=== PATIENT | male | born 1945 | race Caucasian/White ===

== ENCOUNTER 2016-09-19 09:45 | Outpatient (CLI) | payer MEDICARE, OTHER | END 2016-09-19 09:46 | disposition home or self-care (01) | DX: I10 Essential (primary) hypertension (principal); E78.9 Disorder of lipoprotein metabolism, unspecified; N40.1 Benign prostatic hyperplasia with lower urinary tract symptoms; K21.9 Gastro-esophageal reflux disease without esophagitis ==

== ENCOUNTER 2016-10-12 | Outpatient (CLI) | payer MEDICARE, OTHER | END 2016-10-12 11:32 | disposition critical access hospital (66) | CPT/HCPCS: A0425; A0429 ==

== ENCOUNTER 2016-10-12 11:51 | Emergency (ER) | payer MEDICARE, OTHER ==
[2016-10-12] MEDS ORDERED: SODIUM CHLORIDE 0.9% 500 ML IV ONE (13:39)
[2016-10-12] MEDS ORDERED: IOPAMIDOL-300 100 ML VIAL IVP ONE (14:30)
== END 2016-10-12 16:07 | disposition left against medical advice (07) ==
DX: R55 Syncope and collapse (principal); Z53.21 Procedure and treatment not carried out due to patient leaving prior to being seen by health care provider; I10 Essential (primary) hypertension; M10.9 Gout, unspecified; K21.9 Gastro-esophageal reflux disease without esophagitis; E78.5 Hyperlipidemia, unspecified; E78.00 Pure hypercholesterolemia, unspecified; N40.0 Benign prostatic hyperplasia without lower urinary tract symptoms; M19.90 Unspecified osteoarthritis, unspecified site
CPT/HCPCS: 36415; 70450; 71020; 71275; 80053; 81003; 83690; 83880; 84443; 84484; 85025; 85610; 85730; 93005; 93010; 99283; 99285; Q9967

== ENCOUNTER 2017-11-10 10:33 | Outpatient (CLI) | payer MEDICARE, OTHER | END 2017-11-10 10:34 | disposition EMS.NT | LOC: EMS 10:33 | PROVIDERS: ATTEND Surgery | DX: R55 Syncope and collapse (principal) ==

== ENCOUNTER 2018-06-18 14:40 | Outpatient (CLI) | payer MEDICARE, OTHER ==
--- NOTE | 2018-06-18 15:54 | Ultrasound Report ---
Reason: L Scrotal Pain Procedure Date: 06/18/2018 Accession Number: [id number] / [id number] Procedure: US - Testicle CPT Code: FULL RESULT: EXAM: SCROTAL ULTRASOUND EXAM DATE: 06/18/2018 03:10 PM. CLINICAL HISTORY: Left scrotal pain. COMPARISON: None. TECHNIQUE: Real-time scanning was performed with static images obtained. Color-flow images were utilized. FINDINGS: Right: Testis: 3.2 x 2.5 x 3.8 cm. Normal size and echotexture. No mass, calcification, or abnormal blood flow. Epididymis: 0.8 x 1.3 x 1.6 cm. Normal size and echotexture. No mass or abnormal blood flow. Hydrocele: Small hydrocele. Varicocele: Dilated varicose vein up to 3.3 mm without Valsalva maneuver which does not fully fill with color Doppler, possibly thrombosed. Left: Testis: 2.9 x 2.4 x 3.6 cm. Normal size and echotexture. No mass, calcification, or abnormal blood flow. Epididymis: 0.8 x 1.3 x 0.9 cm. Normal size and echotexture. No mass or abnormal blood flow. Hydrocele: Small hydrocele. Varicocele: Venous dilation of up to 3.7 mm which does not completely fill by color Doppler, possibly thrombosed. IMPRESSION: Bilateral varicoceles. Small bilateral hydroceles. No evidence of torsion, abscess, or asymmetric hyperemia. RADIA
== END 2018-06-18 14:41 | disposition home or self-care (01) ==
LOC: DI 14:40
PROVIDERS: ATTEND Urology
DX: I86.1 Scrotal varices (principal); N43.3 Hydrocele, unspecified
CPT/HCPCS: 76870

== ENCOUNTER 2018-08-26 10:03 | Outpatient (CLI) | payer MEDICARE, OTHER ==
[2018-08-26 10:16] LABS: BASOPHILS # (AUTO) 0.1 10^3/uL (0.0-0.1); BASOPHILS % (AUTO) 1.4 %; EOSINOPHILS # (AUTO) 0.3 10^3/uL (0.0-0.7); EOSINOPHILS % (AUTO) 4.3 %; HGB - HEMOGLOBIN 15.2 g/dL (14.0-18.0); LYMPHOCYTES # (AUTO) 2.1 10^3/uL (1.5-3.5); LYMPHOCYTES % (AUTO) 32.7 %; MEAN CORPUSCULAR HEMOGLOBIN 32.9 pg (27.0-31.0); MEAN CORPUSCULAR HGB CONC 34.6 g/dL (32.0-36.0); MEAN CORPUSCULAR VOLUME 94.9 fL (80.0-94.0); MEAN PLATELET VOLUME 6.6 fL (7.4-11.4); MONOCYTES # (AUTO) 0.6 10^3/uL (0.0-1.0); MONOCYTES % (AUTO) 9.3 %; NEUTROPHILS # (AUTO) 3.3 10^3/uL (1.5-6.6); NEUTROPHILS % (AUTO) 52.3 %; PLT - PLATELET COUNT 225 10^3/uL (130-450); RED BLOOD COUNT 4.63 10^6/uL (4.70-6.10); RED CELL DISTRIBUTION WIDTH 14.3 % (12.0-15.0); WHITE BLOOD COUNT 6.4 x10^3/uL (4.8-10.8)
[2018-08-26 10:25] LABS: CALCIUM 9.2 mg/dL (8.5-10.3); CREATININE 0.9 mg/dL (0.6-1.2)
== END 2018-08-26 10:04 | disposition home or self-care (01) ==
LOC: LAB 10:03
PROVIDERS: ATTEND Orthopaedic Surgery Sports Medicine
DX: Z01.818 Encounter for other preprocedural examination (principal); I10 Essential (primary) hypertension; G56.91 Unspecified mononeuropathy of right upper limb; G56.21 Lesion of ulnar nerve, right upper limb
CPT/HCPCS: 36415; 80048; 85025; 93005

== ENCOUNTER 2018-08-28 07:32 | Day surgery (SDC) | payer MEDICARE, OTHER ==
[~2018-08-28 07:32] MED LIST: ceFAZolin 2 GM/50 ML 2 GM/50 ML BAG IV ONE
[2018-08-28] MEDS ORDERED: LACTATED RINGERS 1,000 ML IV ONE (07:36)
--- NOTE | 2018-08-28 08:23 | ANESTHESIA ---
Pre-Anesthesia VS, & Labs - Diagnosis Right ulnar nerve compression - Procedure right ulnar nerve/cubital tunnel release, possible ulnar nerve transposition Vital Signs: Temp Pulse Resp BP Pulse Ox 36.0 C L 65 16 155/84 H 98 08/28/18 07:42 08/28/18 07:42 08/28/18 07:42 08/28/18 07:42 08/28/18 07:42 Height 5 ft 11 in Weight (kg) 79.3 kg Body Mass Index 25.1 - NPO >8 hours Home Medications and Allergies Allopurinol 200 mg PO BID 04/22/13 Lisinopril 20 mg PO DAILY 04/22/13 Metoprolol Tartrate [Lopressor] 25 mg PO BID 04/22/13 Naproxen 500 mg PO BID PRN 04/22/13 Omeprazole [PriLOSEC] 20 mg PO DAILY 04/22/13 rOPINIRole [Requip] 2 mg PO QPM 04/22/13 hydroCHLOROthiazide [Hydrochlorothiazide] 25 mg PO DAILY 10/12/16 Allergies/Adverse Reactions: Allergies Allergy/AdvReac Type Severity Reaction Status Date / Time No Known Drug Allergies Allergy Unverified 10/12/16 11:58 Anes History & Medical History - Anesthetic History Anesthesia Complications: reports: No previous complications - Medical History Cardiovascular: reports: Hypertension, High cholesterol Pulmonary: reports: Sleep apnea (does not use cpap) Gastrointestinal: reports: GERD (controlled on medication), Hemorrhoids Urinary: reports: Benign prostate hypertrophy Neuro: reports: None Musculoskeletal: reports: Osteoarthritis, Gout Endocrine/Autoimmune: reports: None Blood Disorders: reports: None Skin: reports: None Smoking Status: Former smoker (Quit in 1979) Psychosocial: reports: Alcohol (1-2 beers per night) - Surgical History General: Colonoscopy Urologic: Prostatic surgery Orthopedic: Knee replacement Results - EKG Results EKG Comparison: Normal EKG Exam General: Alert, Oriented x3, Cooperative, No acute distress Dental: WNL Mouth Openin Fingerbreadth Neck Mobility: Normal Mallampati classification: II Thyromental Distance: 4-6 cm Respiratory: Lungs clear, Normal breath sounds, No respiratory distress, No accessory muscle use Cardiovascular: Regular rate, Normal S1, Normal S2, No murmurs Mental/Cognitive Status: Alert/Oriented X3, Normal for patient Plan Anesthesia Type: General Consent for Procedure(s) Verified and Reviewed: Yes Code Status: Attempt Resuscitation ASA classification: 2-Mild systemic disease Is this case an emergency?: No
[2018-08-28] MEDS ORDERED: ONDANSETRON 4 MG/2 ML VIAL IVP ONE (09:00)
[2018-08-28] MEDS ORDERED: PROPOFOL 200 MG/20 ML VIAL IVP ONE (09:00)
[2018-08-28] MEDS ORDERED: KETOROLAC 30 MG/ML VIAL IVP ONE (09:00)
[2018-08-28] MEDS ORDERED: fentaNYL 100 MCG/2 ML VIAL IVP ONE (09:00)
[2018-08-28] MEDS ORDERED: LIDOCAINE-MPF 2% 5 ML VIAL IM ONE (09:00)
[2018-08-28] MEDS ORDERED: DEXAMETHASONE 4 MG/ML VIAL IVP ONE (09:00)
[2018-08-28] MEDS ORDERED: MIDAZOLAM 2 MG/2 ML VIAL IVP ONE (09:00)
[2018-08-28] MEDS ORDERED: BUPIVACAINE 0.25% PF 30 ML VIAL ONE (09:16)
[2018-08-28] MEDS ORDERED: BUPIVACAINE 0.25% PF 30 ML VIAL SUBQ ONE ×2 (10:17)
[2018-08-28] MEDS ORDERED: oxyCODONE 5 MG TABLET PO PRN (11:31)
[2018-08-28] MEDS ORDERED: ONDANSETRON 4 MG/2 ML VIAL IVP PRN (11:31)
--- NOTE | 2018-08-28 11:39 | IMMEDIATE POSTOPERATIVE NOTE ---
Immediate Postoperative Note - Procedure Note Procedure Date: 08/28/18 Pre-Op Diagnosis: RIGHT ULNAR NERVE COMPRESSION AT CUBITAL TUNNEL Procedure: RIGHT ULNAR NERVE TRANSPOSITION, SUB Q WITH FASCIAL SLING Post-Op Diagnosis: SAME Primary Surgeon: Richard QUEVEDO MD Anesthesia Type: Local Findings: ABOVE Complications: No complications Estimated Blood Loss (in cc): 25 (LESS THAN 25CC) Specimens and Cultures: NA Plan of Care: She tolerated procedure well. Instrument and sponge counts correct. Patient extubated and transferred to the recovery room in stable condition. Patient is placed in a anterior splint with significant padding keeping his elbow approximately 45 degrees short of full extension. He is advised to avoid exertion. He is encouraged to move hand wrist and shoulder. Is encouraged to elevate elbow at rest. Will use oral narcotic pain medication and wean as tolerated. He is encouraged to use [id number]-prvlvct stool softener. This will be during narcotic use. We will see him in 10-14 days for postop visit or sooner on an as-needed basis.
[2018-08-28] MEDS ORDERED: BACITRACIN OINT TOP ONE (11:41)
[2018-08-28 13:03] VITALS: BP 165/76
--- NOTE | 2018-08-28 13:28 | OPERATIVE REPORT ---
DATE OF SERVICE: 08/28/2018 Physician: Vicente Hopson MD SURGEON: Vicente Hopson MEDICAL BILLING COORDINATOR: None. ANESTHESIA PROVIDER: Misty Marvin CRNA. ANESTHESIA: General anesthesia and endotracheal with 30 mL of 0.25% plain Marcaine local. PREOPERATIVE ANTIBIOTICS: Two grams weight-based IV Ancef. COMPRESSION DEVICE: Bilateral calf SCD boots. FLUIDS: 600 mL of lactated Ringer's. TOURNIQUET TIME: 71 minutes at 250 mmHg. 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 POSTOPERATIVE DIAGNOSIS: Right ulnar nerve compression at cubital tunnel. PROCEDURE: Right elbow ulnar nerve transposition with fascial sling, subcutaneous. INTRAOPERATIVE COMPLICATIONS: None noted. INTRAOPERATIVE FINDINGS: Patient noted to have some hourglass formation of the ulnar nerve as it pas sed through the central portion of the cubital tunnel between the epicondyle and olecranon. There ar e various other small areas of apparent compression just slightly distal to that. Post release, all but the branches to the joint remain intact from the ulnar nerve, but the ulnar ner ve is transposed anterior to the medial epicondyle and held in a broad fascial sling without undue co mpression. It remains relaxed throughout full range of motion. Note that the patient's baseline ran ge of motion does not have full extension or full flexion. Throughout this arc, there is relaxation of the nerve. There was no subluxation back into the cubital tunnel noted. No undue corner or press ure at the proximal and distal aspects of the release. HISTORY OF PRESENT ILLNESS AND INDICATIONS: Patient is a 73-year-old gentleman who has had longstand ing right ulnar nerve issues. These are not only symptomatic, but EMG/nerve conduction study confirm ed advanced injury to the ulnar nerve. Patient was indicated for operative treatment. Patient did h ave osteophytes in the cubital tunnel and, as such, a transposition was indicated. We previously discussed risks, benefits, and alternatives and the potential for failure of improvemen t and even worsening of his condition. The implications for potential short-term and long-term, and partial or complete nerve problems is discussed. He previously verbalized understanding of the above . His questions are answered in the preoperative care unit, and he verbalizes his wish to proceed wi th operative treatment. Informed consent was given. On 08/28/2018, patient is identified in the preoperative care unit. He identifies his right elbow as the operative site; this is signed. Patient received preoperative weight-based IV antibiotics. He is brought to the operating room, placed supine on the operating table. Head, neck, and extremities are placed in anatomically comfortable and safe positions to avoid peripheral nerve stretch and compr ession. General anesthesia is administered. Patient's right upper extremity was well-padded. Tourn iquet is placed high on the right arm, avoiding encumbers to the axilla. This is well padded. At th is point, the medial aspect of the elbow is shaved. Patient's right elbow and right upper extremity are prescrubbed with chlorhexidine solution, then prepped and draped in the usual sterile fashion. At this time, surgical pause identifies the right elbow as the operative site. At this point, a arthur thwise is incision made overlying the medial epicondyle just through skin and then spreading dissecti on carried out. Multiple superficial venous structures are cauterized, and then attention is directe d towards dissection down to the structures overlying the cubital tunnel. Once the ulnar nerve is id entified proximally, the cubital tunnel is entered, and then very systematically from a known area to the most proximal extent of potential nerve compression and to the most distal extent potential nerv e compression, the ulnar nerve is released from the cubital tunnel. The branches to the joint are ca uterized with bipolar cautery though the other branches to adjacent musculature are left intact. Thi s allows good transposition of the nerve anterior to the medial epicondyle. Once this is freed compl etely throughout its length all the way to the most proximal and distal extents, a fascial sling is created from the extensor musculature fascia, going from distal to proximal, leaving the most proxima l aspect adjacent to the medial epicondyle intact. The fascial sling is approximately 1 to 1.5 cm in width, and ultimately the nerve was rested in this, and then with the skin tension back to approxima tely what it will be with skin closure, the fascial sling is attached to subcutaneous tissue, thereby preventing relocation of the ulnar nerve. An additional small fascial piece more proximally is used for one additional small point, so that there is a more straight trajectory of the nerve, and then a finger is placed throughout the length of the ulnar nerve course to confirm that there are no constr ictions, and the nerve is observed to remain nice and relaxed throughout the course of range of motio n. Once this is all confirmed, the wound is copiously irrigated and then closed in layered fashion using 0 Vicryl, 2-0 Vicryl and interrupted nylon suture for nicely everted skin edges without undue tensio n. At this point, skin is washed and dried. Local anesthetic is infused superficially. Xeroform dr buchanan is applied. Patient is placed in a well-padded anterior plaster splint to avoid pressure on t he ulnar nerve. The splint material is placed short of the wrist and short of the shoulder, just [place] ntaining the elbow in approximately 45 degrees of flexion. Patient tolerated the procedure well. Instrument and sponge counts were correct. Patient transferre d to recovery room in stable condition. He demonstrated radial, median, and ulnar motor function in the recovery room, slightly subjective decreased ulnar nerve sensation; otherwise no focal neurologic changes appreciated. Patient would be encouraged to keep his right upper extremity elevated, would be encouraged for wrist , hand, and shoulder motion. He will keep the dressing and splint clean, dry, and intact. He was gi nik perioperative narcotic analgesic prescription. Encouraged to use bowel regimen medication during the course that he is using the narcotics. He will follow up in 10 to 14 days, or sooner should pro blems or questions arise. Additional instructions given and reviewed. TD: 08/28/2018 12:01
== END 2018-08-28 07:33 | disposition home or self-care (01) ==
LOC: SDS 07:32
PROVIDERS: ATTEND Orthopaedic Surgery Sports Medicine
PROC: 01S40ZZ Reposition Ulnar Nerve, Open Approach (ICD-10-PCS; principal; 2018-08-28 08:45)
DX: G56.21 Lesion of ulnar nerve, right upper limb (principal); I10 Essential (primary) hypertension; E78.5 Hyperlipidemia, unspecified; G47.30 Sleep apnea, unspecified; N40.0 Benign prostatic hyperplasia without lower urinary tract symptoms; K21.9 Gastro-esophageal reflux disease without esophagitis; Z87.891 Personal history of nicotine dependence
CPT/HCPCS: 64718; A9270; J0690; J7120

== ENCOUNTER 2018-12-18 08:00 | Outpatient (CLI) | payer MEDICARE, OTHER ==
[2018-12-18 18:49] LABS: BASOPHILS # (AUTO) 0.1 10^3/uL (0.0-0.1); BASOPHILS % (AUTO) 0.9 %; EOSINOPHILS # (AUTO) 0.1 10^3/uL (0.0-0.7); EOSINOPHILS % (AUTO) 1.4 %; HGB - HEMOGLOBIN 14.6 g/dL (14.0-18.0); LYMPHOCYTES # (AUTO) 1.1 10^3/uL (1.5-3.5); LYMPHOCYTES % (AUTO) 15.9 %; MEAN CORPUSCULAR HEMOGLOBIN 31.8 pg (27.0-31.0); MEAN CORPUSCULAR HGB CONC 32.8 g/dL (32.0-36.0); MEAN CORPUSCULAR VOLUME 97.1 fL (80.0-94.0); MONOCYTES # (AUTO) 0.4 10^3/uL (0.0-1.0); MONOCYTES % (AUTO) 5.6 %; NEUTROPHILS # (AUTO) 5.3 10^3/uL (1.5-6.6); NEUTROPHILS % (AUTO) 76.2 %; PLT - PLATELET COUNT 224 10^3/uL (130-450); RED BLOOD COUNT 4.59 10^6/uL (4.70-6.10); RED CELL DISTRIBUTION WIDTH 14.1 % (12.0-15.0); WHITE BLOOD COUNT 6.9 x10^3/uL (4.8-10.8)
[2018-12-18 19:09] LABS: ALBUMIN 4.3 g/dL (3.2-5.5); ALBUMIN/GLOBULIN RATIO 1.6 (1.0-2.2); ALKALINE PHOSPHATASE 75 IU/L (42-121); ALT ALANINE AMINOTRANSFERASE 22 IU/L (10-60); AST ASPARTATE AMINOTRANSFERASE 28 IU/L (10-42); BILIRUBIN,TOTAL 0.8 mg/dL (0.2-1.0); BUN - BLOOD UREA NITROGEN 16 mg/dL (6-20); CARBON DIOXIDE - CO2 26 mmol/L (21-32); CHLORIDE 104 mmol/L (101-111); CREATININE 0.8 mg/dL (0.6-1.2); GFR - MDRD 95 (>89); GLUCOSE 77 mg/dL (70-100); SODIUM 140 mmol/L (135-145)
== END 2018-12-18 08:01 | disposition home or self-care (01) ==
LOC: LAB.WCP 08:00
PROVIDERS: ATTEND Family Medicine
DX: R41.3 Other amnesia (principal)
CPT/HCPCS: 36415; 80053; 82607; 83921; 84443; 85025

== ENCOUNTER 2018-12-23 12:48 | Outpatient (CLI) | payer MEDICARE, OTHER ==
[2018-12-23] MEDS ORDERED: GADOBUTROL 7.5 MMOL/7.5 ML VIAL ONE (14:01)
[2018-12-23] MEDS ORDERED: GADOBUTROL 7.5 MMOL/7.5 ML VIAL IVP ONE (14:16)
--- NOTE | 2018-12-24 14:25 | MRI Report ---
Reason: MEMORY LOSS Procedure Date: 12/23/2018 Accession Number: [id number] / [id number] Procedure: MRI - Brain W/WO CPT Code: FULL RESULT: EXAM: MRI BRAIN WITHOUT AND WITH CONTRAST EXAM DATE: 12/23/2018 02:15 PM. CLINICAL HISTORY: Memory loss. COMPARISON: CT head 10/12/2016. TECHNIQUE: Multiplanar, multisequence T1-weighted and fluid-sensitive MR sequences of the brain were performed. Sequences optimized for routine evaluation. Other: None. IV Contrast: 7.5 cc Gadavist. FINDINGS: No cerebellar tonsillar ectopia is identified. No abnormal restricted diffusion signal is present. No abnormal magnetic susceptibility is present in the brain parenchyma Age appropriate prominence of the ventricles and sulci is noted. No extra-axial fluid collection is seen. Patchy FLAIR hyperintense signal is seen in the central mariaelena. Subcortical and deep white matter FLAIR hyperintensities are seen throughout the cerebral hemisphere. There are numerous foci bilaterally. There is relative sparing of each temporal lobe. There is an expected flow void in the major intracranial vessels at the skull base. No mass is present in either orbit. No enhancing mass is identified in the brain parenchyma. No enhancing mass is present in either Meckel's cave or in either orbit. Cavernous sinuses enhance in symmetric fashion. Expected enhancement is seen in the major dural venous sinuses. The right maxillary sinus is completely opacified. There is complete opacification of some ethmoid air cells on the right. There is opacification of the right frontal sinus and frontoethmoidal recess. The right ostiomeatal unit is obstructed. There is T2 hyperintense soft tissue in the nasal cavity on the right. There is peripheral enhancement of the right maxillary sinus. There is not enhancement of most of the T2 hyperintense signal in the right maxillary sinus. Expected enhancement is seen in the major dural venous sinuses. IMPRESSION: 1. FLAIR hyperintensities are seen in the cerebral hemisphere white matter bilaterally and in the mariaelena. These are nonspecific and are commonly seen secondary to small vessel ischemic change. This is at least moderate in the supratentorial compartment. 2. No ventriculomegaly. 3. No enhancing mass is present in the brain parenchyma. 4. Complete opacification of the right maxillary sinus, some ethmoid air cells, and in the right frontal sinus is noted. There is obstruction of the right ostiomeatal unit. 5. Soft tissue is seen in the right nasal cavity. This could reflect secretions. Direct visualization could exclude polyp formation. RADIA
== END 2018-12-23 12:49 | disposition home or self-care (01) ==
LOC: DI 12:48
PROVIDERS: ATTEND Family Medicine
DX: R41.3 Other amnesia (principal)
CPT/HCPCS: 70553; A9585

== ENCOUNTER 2019-07-24 09:11 | Outpatient (CLI) | payer MEDICARE, OTHER ==
--- NOTE | 2019-07-25 09:41 | XRAY Report ---
Reason: RIGHT KNEE PAIN Procedure Date: 07/24/2019 Accession Number: [id number] / [id number] Procedure: WCP - Knee 3 View RT CPT Code: Final Report FULL RESULT: EXAM: RIGHT KNEE RADIOGRAPHY EXAM DATE: 07/24/2019 09:11 AM. CLINICAL HISTORY: Right knee pain. COMPARISON: None. TECHNIQUE: 3 views. FINDINGS: Bones: A 3 compartment total knee arthroplasty is in gross anatomic alignment. No unexpected precipitant lucencies or fractures. Soft Tissues: Calcifications in the posterior knee suggest loose bodies. No knee effusion. IMPRESSION: Probable loose bodies in the posterior knee joint. RADIA
== END 2019-07-24 23:59 | disposition home or self-care (01) ==
LOC: DI.WCP 09:11
PROVIDERS: ATTEND Family Medicine
DX: M25.561 Pain in right knee (principal); Z96.651 Presence of right artificial knee joint

== ENCOUNTER 2020-12-27 11:56 | Outpatient (CLI) | payer MEDICARE, OTHER ==
[2020-12-27 18:15] LABS: BASOPHILS # (AUTO) 0.1 10^3/uL (0.0-0.1); BASOPHILS % (AUTO) 1.4 %; EOSINOPHILS # (AUTO) 0.1 10^3/uL (0.0-0.7); EOSINOPHILS % (AUTO) 2.1 %; HCT - HEMATOCRIT 46.9 % (42.0-52.0); HGB - HEMOGLOBIN 15.1 g/dL (14.0-18.0); LYMPHOCYTES # (AUTO) 1.3 10^3/uL (1.5-3.5); LYMPHOCYTES % (AUTO) 22.1 %; MEAN CORPUSCULAR HEMOGLOBIN 31.9 pg (27.0-31.0); MEAN CORPUSCULAR HGB CONC 32.2 g/dL (32.0-36.0); MEAN CORPUSCULAR VOLUME 98.9 fL (80.0-94.0); MEAN PLATELET VOLUME 8.9 fL (7.4-11.4); MONOCYTES # (AUTO) 0.4 10^3/uL (0.0-1.0); MONOCYTES % (AUTO) 6.6 %; NEUTROPHILS # (AUTO) 3.9 10^3/uL (1.5-6.6); NEUTROPHILS % (AUTO) 67.5 %; PLT - PLATELET COUNT 220 10^3/uL (130-450); RED BLOOD COUNT 4.74 10^6/uL (4.70-6.10); RED CELL DISTRIBUTION WIDTH 13.2 % (12.0-15.0); WHITE BLOOD COUNT 5.8 x10^3/uL (4.8-10.8)
[2020-12-27 18:59] LABS: ALBUMIN 4.6 g/dL (3.2-5.5); ALBUMIN/GLOBULIN RATIO 2.3 (1.0-2.2); ALKALINE PHOSPHATASE 72 IU/L (42-121); ALT ALANINE AMINOTRANSFERASE 18 IU/L (10-60); AST ASPARTATE AMINOTRANSFERASE 24 IU/L (10-42); BILIRUBIN,TOTAL 0.6 mg/dL (0.2-1.0); BUN - BLOOD UREA NITROGEN 15 mg/dL (6-20); CALCIUM 9.3 mg/dL (8.5-10.3); CARBON DIOXIDE - CO2 28 mmol/L (21-32); CHLORIDE 105 mmol/L (101-111); CHOL/HDL RATIO 3.1 (<5.0); CHOLESTEROL 236 mg/dL; CREATININE 0.8 mg/dL (0.6-1.2); GFR - MDRD 94 (>89); GLUCOSE 96 mg/dL (70-100); HDL CHOLESTEROL 77 mg/dL; LDL CHOLESTEROL,CALCULATED 147 mg/dL; LDL/HDL RATIO 1.9 (<3.6); POTASSIUM 4.7 mmol/L (3.5-5.0); SODIUM 142 mmol/L (135-145); TOTAL PROTEIN 6.6 g/dL (6.7-8.2); TRIGLYCERIDES 61 mg/dL; URIC ACID 5.4 mg/dL (2.6-7.2); VLDL CHOLESTEROL 12 mg/dL
[2020-12-27 19:07] LABS: THYROID STIMULATING HORMONE 1.87 uIU/mL (0.34-5.60)
== END 2020-12-27 23:59 | disposition home or self-care (01) ==
LOC: LAB.WCP 11:56
PROVIDERS: ATTEND Family Medicine
DX: I10 Essential (primary) hypertension (principal); E03.9 Hypothyroidism, unspecified; M10.9 Gout, unspecified; E78.5 Hyperlipidemia, unspecified; R41.3 Other amnesia
CPT/HCPCS: 36415; 80053; 80061; 82607; 83721; 84443; 84550; 85025

== ENCOUNTER 2021-01-12 11:52 | Outpatient (CLI) | payer MEDICARE, OTHER ==
--- NOTE | 2021-01-12 13:24 | MRI Report ---
PROCEDURE: Brain W/O INDICATIONS: MEMORY LOSS TECHNIQUE: Noncontrast axial T1 spin echo, axial T2 fast spin echo, sagittal and axial FLAIR, coronal T2 fast sp in echo, axial gradient echo, axial diffusion and ADC through the brain. COMPARISON: None. FINDINGS: Cerebrum, Cerebellum and Brainstem: Moderate cerebral and cerebellar volume loss as well as moderate multifocal hyperintensities in the deep and subcortical white matter present. The diffusion sequenc e is normal without evidence of acute infarct. No intracranial hemorrhage, mass lesion or midline sh ift. Basal cisterns and foramen magnum contain appropriate anatomy and vascular flow voids. No evid ence of dural or leptomeningeal thickening. Both hippocampi have appropriate morphology and signal. Ventricles: Appropriate in size and position. No hydrocephalus. Skull Base: The bony sella, pituitary gland and infundibulum unremarkable. Clivus and craniovertebr al relationships are appropriate. Visualized portions of the seventh and eighth cranial nerve comple xes and internal auditory canals are within normal limits. Scalp and Calvarium: The scalp is unremarkable. Underlying calvarium has an appropriate marrow sign al. Paranasal Sinuses: Complete opacification of the right maxillary sinus is noted with osseous wall th ickening. Minimal mucosal thickening also noted in the anterior right ethmoid and right frontal sinus . Mastoids: Unremarkable as visualized. No mastoid effusion present. Orbits: The orbits, globes and ocular muscles are unremarkable. IMPRESSION: Moderate atrophy and multifocal white matter chronic ischemic change, stable from the prior. 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 Reviewed by: Reece Valles MD on 01/12/2021 12:23 PM KIANNA Approved by: Reece Valles MD on 01/12/2021 12:23 PM AK[facility] Station ID: [id number]
== END 2021-01-12 11:53 | disposition home or self-care (01) ==
LOC: DI 11:52
PROVIDERS: ATTEND Internal Medicine
DX: R41.3 Other amnesia (principal); G31.9 Degenerative disease of nervous system, unspecified; J32.0 Chronic maxillary sinusitis; J32.1 Chronic frontal sinusitis; J32.2 Chronic ethmoidal sinusitis

== ENCOUNTER 2021-11-21 11:51 | Outpatient (CLI) | payer MEDICARE, OTHER ==
[2021-11-21 18:14] LABS: BASOPHILS # (AUTO) 0.1 10^3/uL (0.0-0.1); BASOPHILS % (AUTO) 1.2 %; EOSINOPHILS # (AUTO) 0.1 10^3/uL (0.0-0.7); EOSINOPHILS % (AUTO) 1.7 %; HCT - HEMATOCRIT 45.5 % (42.0-52.0); HGB - HEMOGLOBIN 15.1 g/dL (14.0-18.0); LYMPHOCYTES # (AUTO) 1.7 10^3/uL (1.5-3.5); LYMPHOCYTES % (AUTO) 28.1 %; MEAN CORPUSCULAR HEMOGLOBIN 30.5 pg (27.0-31.0); MEAN CORPUSCULAR HGB CONC 33.2 g/dL (32.0-36.0); MEAN CORPUSCULAR VOLUME 91.9 fL (80.0-94.0); MEAN PLATELET VOLUME 9.4 fL (7.4-11.4); MONOCYTES # (AUTO) 0.4 10^3/uL (0.0-1.0); NEUTROPHILS # (AUTO) 3.7 10^3/uL (1.5-6.6); NEUTROPHILS % (AUTO) 61.8 %; PLT - PLATELET COUNT 225 10^3/uL (130-450); RED BLOOD COUNT 4.95 10^6/uL (4.70-6.10); RED CELL DISTRIBUTION WIDTH 13.2 % (12.0-15.0)
[2021-11-21 18:34] LABS: ALBUMIN 4.3 g/dL (3.2-5.5); ALBUMIN/GLOBULIN RATIO 1.7 (1.0-2.2); ALKALINE PHOSPHATASE 78 IU/L (42-121); ALT ALANINE AMINOTRANSFERASE 25 IU/L (10-60); AST ASPARTATE AMINOTRANSFERASE 23 IU/L (10-42); BUN - BLOOD UREA NITROGEN 7 mg/dL (6-20); CALCIUM 9.3 mg/dL (8.5-10.3); CARBON DIOXIDE - CO2 29 mmol/L (21-32); CHLORIDE 103 mmol/L (101-111); CHOL/HDL RATIO 2.3 (<5.0); CHOLESTEROL 150 mg/dL; CREATININE 0.8 mg/dL (0.6-1.2); GFR - MDRD 94 (>89); GLUCOSE 91 mg/dL (70-100); HDL CHOLESTEROL 64 mg/dL; LDL CHOLESTEROL,CALCULATED 68 mg/dL; LDL/HDL RATIO 1.1 (<3.6); POTASSIUM 4.2 mmol/L (3.5-5.0); SODIUM 142 mmol/L (135-145); TOTAL PROTEIN 6.9 g/dL (6.7-8.2); TRIGLYCERIDES 91 mg/dL; URIC ACID 6.1 mg/dL (2.6-7.2); VLDL CHOLESTEROL 18 mg/dL
[2021-11-21 18:39] LABS: THYROID STIMULATING HORMONE 2.51 uIU/mL (0.34-5.60)
== END 2021-11-21 11:52 | disposition home or self-care (01) ==
LOC: LAB.N 11:51
PROVIDERS: ATTEND Internal Medicine
DX: I10 Essential (primary) hypertension (principal); E03.9 Hypothyroidism, unspecified; Z87.39 Personal history of other diseases of the musculoskeletal system and connective tissue
CPT/HCPCS: 36415; 80053; 80061; 83721; 84443; 84550; 85025

== ENCOUNTER 2022-01-30 12:19 | Outpatient (CLI) | payer MEDICARE, OTHER | END 2022-01-30 12:20 | disposition critical access hospital (66) | LOC: EMS 12:19 | DX: R41.0 Disorientation, unspecified (principal); F03.90 Unspecified dementia, unspecified severity, without behavioral disturbance, psychotic disturbance, mood disturbance, and anxiety | CPT/HCPCS: A0425; A0429 ==

== ENCOUNTER 2024-04-15 11:00 | Outpatient (CLI) | payer MEDICARE, OTHER ==
[2024-04-15 18:14] LABS: CALCIUM 9.3 mg/dL (8.5-10.3); CREATININE 0.7 mg/dL (0.6-1.3); POTASSIUM 4.2 mmol/L (3.5-4.5); URIC ACID 6.6 mg/dL (4.4-7.6)
[2024-04-15 18:20] LABS: THYROID STIMULATING HORMONE 2.72 uIU/mL (0.34-5.60)
== END 2024-04-15 11:01 | disposition home or self-care (01) ==
LOC: LAB.N 11:00
PROVIDERS: ATTEND Internal Medicine
DX: I10 Essential (primary) hypertension (principal); E03.9 Hypothyroidism, unspecified; Z86.39 Personal history of other endocrine, nutritional and metabolic disease
CPT/HCPCS: 36415; 80048; 84443; 84550